=== PATIENT | female | born 1965 | race African-American/Black ===

== ENCOUNTER 2016-11-16 18:40 | Emergency (ER) | payer MEDICAID ==
[~2016-11-16] VITALS: Ht 152.4 cm; Wt 91.0 kg
[~2016-11-16 18:40] MED LIST: ENAL20TA PO; IRON PO; NORVASC PO
[2016-11-16 20:17] LABS: BASOPHILS % 0.6 % (0.0-2.0); EOSINOPHILS % 2.5 % (0.0-5.0); HEMATOCRIT. 33.3 % (36.0-48.0); HEMOGLOBIN. 10.9 g/dL (12.0-16.0); LYMPHOCYTES % 18.1 % (20.0-50.0); MEAN CORPUSCULAR HEMOGLOBIN 23.8 pg (28.0-32.0); MEAN CORPUSCULAR VOLUME 72.6 fL (81.0-99.0); MONOCYTES % 7.7 % (2.0-8.0); NEUTROPHILS % 71.1 % (40.0-76.0); PLATELET 215 x1000/uL (130-400); RED BLOOD CELL COUNT 4.59 mill/uL (4.2-5.4); RED CELL DISTRIBUTION WIDTH 16.7 % (11.6-14.6)
[2016-11-16 20:23] LABS: PARTIAL THROMBOPLASTIN TIME 27.3 sec (23.4-31.0)
[2016-11-16 20:32] LABS: CHLORIDE 104 mEq/L (98-107)
[2016-11-16 21:00] LABS: CARBON DIOXIDE 25 mEq/L (21-32); CREATINE KINASE 853 IU/L (26-192); CREATINE KINASE MB FRACTION 2.6 ng/mL (0.5-3.6)
[2016-11-16 21:02] LABS: TROPONIN I < 0.02 ng/mL (0.00-0.04)
[2016-11-16] MEDS ORDERED: POTASSIUM CHLORIDE 20MEQ TABLET SR PO ONE (21:15)
[2016-11-16 22:45] LABS: *AMPHETAMINES SCREEN URINE NEGATIVE (NEGATIVE); *BARBITURATES SCREEN URINE NEGATIVE (NEGATIVE); *BENZODIAZEPINES SCREEN URINE NEGATIVE (NEGATIVE); *COCAINE SCREEN URINE NEGATIVE (NEGATIVE); CANNABINOID URINE SCREEN NEGATIVE (NEGATIVE); METHADONE URINE SCREEN NEGATIVE (NEGATIVE); OPIATES URINE SCREEN NEGATIVE (NEGATIVE); PHENCYCLIDINE URINE SCREEN NEGATIVE (NEGATIVE)
[2016-11-16] MEDS ORDERED: ENALAPRIL 10MG TABLET PO ONE (23:30)
[2016-11-17 00:25] VITALS: BP 181/107
== END 2016-11-17 01:00 | disposition home or self-care (01) ==
LOC: ER 22:15
DX: I10 Essential (primary) hypertension (principal); D64.9 Anemia, unspecified; E87.8 Other disorders of electrolyte and fluid balance, not elsewhere classified; Z88.3 Allergy status to other anti-infective agents
CPT/HCPCS: 36415; 71010; 80053; 80305; 82550; 82553; 83690; 83880; 84484; 85025; 85610; 85730; 93005; 99285; Z7610

== ENCOUNTER 2017-11-16 15:50 | Emergency (ER) | payer MEDICAID ==
[~2017-11-16] VITALS: Ht 157.5 cm; Wt 89.0 kg
[2017-11-16 15:58] VITALS: BP 144/84
== END 2017-11-16 19:51 | disposition left against medical advice (07) ==
LOC: ER 15:50
DX: R00.2 Palpitations (principal); Z53.21 Procedure and treatment not carried out due to patient leaving prior to being seen by health care provider
CPT/HCPCS: 99281

== ENCOUNTER 2017-11-25 16:15 | Emergency (ER) | payer MEDICAID ==
[~2017-11-25] VITALS: Ht 152.4 cm; Wt 88.0 kg
[2017-11-25 20:40] VITALS: BP 147/90
[2017-11-25 20:43] LABS: BASOPHILS % 0.8 % (0.0-2.0); EOSINOPHILS % 3.6 % (0.0-5.0); HEMATOCRIT. 28.3 % (36.0-48.0); LYMPHOCYTES % 20.8 % (20.0-50.0); MEAN CORPUSCULAR HEMOGLOBIN 23.7 pg (28.0-32.0); MEAN CORPUSCULAR VOLUME 74.3 fL (81.0-99.0); MEAN PLATELET VOLUME 7.9 fl (7.4-10.4); MONOCYTES % 7.6 % (2.0-8.0); NEUTROPHILS % 67.2 % (40.0-76.0); PLATELET 183 x1000/uL (130-400); RED CELL DISTRIBUTION WIDTH 18.5 % (11.6-14.6)
[2017-11-25 20:47] LABS: CHLORIDE 108 mEq/L (98-107)
== END 2017-11-25 23:12 | disposition left against medical advice (07) ==
LOC: ER 17:24
DX: D25.9 Leiomyoma of uterus, unspecified (principal); D50.9 Iron deficiency anemia, unspecified; I10 Essential (primary) hypertension; Z88.3 Allergy status to other anti-infective agents; Z88.0 Allergy status to penicillin
CPT/HCPCS: 36415; 76830; 76856; 80053; 81025; 85025; 86850; 86900; 99285

== ENCOUNTER 2017-12-09 15:08 | Emergency (ER) | payer MEDICAID ==
[~2017-12-09] VITALS: Ht 152.4 cm; Wt 87.0 kg
[2017-12-09] MEDS ORDERED: LORAZEPAM 2MG/ML CPJ IV ONE (18:30)
[2017-12-09 20:33] LABS: BASOPHILS % 0.7 % (0.0-2.0); HEMATOCRIT. 32.9 % (36.0-48.0); HEMOGLOBIN. 10.3 g/dL (12.0-16.0); LYMPHOCYTES % 23.9 % (20.0-50.0); MEAN CORPUSCULAR HEMOGLOBIN 23.6 pg (28.0-32.0); MEAN CORPUSCULAR VOLUME 75.6 fL (81.0-99.0); MEAN PLATELET VOLUME 8.2 fl (7.4-10.4); MONOCYTES % 6.4 % (2.0-8.0); PLATELET 241 x1000/uL (130-400); RED BLOOD CELL COUNT 4.35 mill/uL (4.2-5.4); RED CELL DISTRIBUTION WIDTH 18.9 % (11.6-14.6)
[2017-12-09 20:42] LABS: PARTIAL THROMBOPLASTIN TIME 27.1 sec (23.4-31.0); PROTHROMBIN TIME 9.9 sec (9.1-11.1)
[2017-12-09 20:50] LABS: CHLORIDE 107 mEq/L (98-107)
[2017-12-09 20:57] LABS: ETHANOL BLOOD < 10 mg/dL
[2017-12-09] MEDS ORDERED: CLONIDINE 0.2MG TABLET PO ONE (21:15)
[2017-12-09 21:30] VITALS: BP 154/94
== END 2017-12-09 22:06 | disposition home or self-care (01) ==
LOC: ER 15:08
DX: I10 Essential (primary) hypertension (principal); R51 Headache; Z88.3 Allergy status to other anti-infective agents
CPT/HCPCS: 36415; 70450; 71045; 80053; 83880; 84443; 84484; 85025; 85610; 85730; 93005; 99285; G0482

== ENCOUNTER 2018-07-08 11:18 | Emergency (ER) | payer MEDICAID ==
[~2018-07-08] VITALS: Ht 152.4 cm; Wt 100.0 kg
[2018-07-08] MEDS ORDERED: ONDANSETRON HCL 4MG/2ML INJ IV STA (11:33)
[2018-07-08 11:45] LABS: HEMATOCRIT. 41.6 % (36.0-48.0); HEMOGLOBIN. 13.4 g/dL (12.0-16.0); MEAN CORPUSCULAR HEMOGLOBIN 24.1 pg (28.0-32.0); MEAN PLATELET VOLUME 8.4 fl (7.4-10.4); PLATELET 167 x1000/uL (130-400); RED BLOOD CELL COUNT 5.55 mill/uL (4.2-5.4); RED CELL DISTRIBUTION WIDTH 22.2 % (11.6-14.6)
[2018-07-08 11:52] LABS: CHLORIDE 105 mEq/L (98-107)
[2018-07-08 11:53] LABS: PROTHROMBIN TIME 10.2 sec (9.6-11.0)
[2018-07-08 13:07] LABS: PLATELET ESTIMATE NORMAL
[2018-07-08 13:17] LABS: CLARITY URINE CLEAR (CLEAR); COLOR URINE YELLOW (YELLOW); KETONES URINE NEGATIVE (NEGATIVE); LEUKOCYTE ESTERASE URINE 2+ (NEGATIVE); NITRITE URINE NEGATIVE (NEGATIVE); OCCULT BLOOD URINE 1+ (NEGATIVE); PROTEIN URINE 1+ (NEGATIVE); SPECIFIC GRAVITY URINE 1.012 (1.005-1.030); UROBILINOGEN URINE 0.2 E.U./dL (0.2-1.0)
[2018-07-08 14:03] VITALS: BP 135/83
== END 2018-07-08 14:09 | disposition home or self-care (01) ==
LOC: ER 11:18
DX: N39.0 Urinary tract infection, site not specified (principal); R11.2 Nausea with vomiting, unspecified; R20.2 Paresthesia of skin; E88.09 Other disorders of plasma-protein metabolism, not elsewhere classified; I10 Essential (primary) hypertension; Z98.890 Other specified postprocedural states; Z88.1 Allergy status to other antibiotic agents
CPT/HCPCS: 36415; 80053; 81003; 81025; 83690; 85025; 85610; 87077; 87086; 93005; 99284; J2405; Z7610

== ENCOUNTER 2018-07-09 13:45 | Emergency (ER) | payer MEDICAID ==
[~2018-07-09] VITALS: Ht 165.1 cm; Wt 93.0 kg
[2018-07-09] MEDS ORDERED: ONDANSETRON HCL 4MG/2ML INJ IV STA (14:33)
[2018-07-09] MEDS ORDERED: KETOROLAC 30MG/ML VIAL IV STA (14:33)
[2018-07-09 14:59] LABS: HEMATOCRIT. 38.4 % (36.0-48.0); HEMOGLOBIN. 12.6 g/dL (12.0-16.0); MEAN CORPUSCULAR HEMOGLOBIN 24.4 pg (28.0-32.0); MEAN CORPUSCULAR VOLUME 74.1 fL (81.0-99.0); MEAN PLATELET VOLUME 8.3 fl (7.4-10.4); PLATELET 140 x1000/uL (130-400); RED BLOOD CELL COUNT 5.19 mill/uL (4.2-5.4); RED CELL DISTRIBUTION WIDTH 22.6 % (11.6-14.6)
[2018-07-09] MEDS ORDERED: ONDANSETRON HCL 4MG TABLET PO ONE (15:00)
[2018-07-09] MEDS ORDERED: OXYCODONE HCL/ACETAMINOPHEN 5/325MG TABLET PO ONE (15:00)
[2018-07-09 15:04] LABS: CHLORIDE 104 mEq/L (98-107)
[2018-07-09 15:05] LABS: PROTHROMBIN TIME 10.7 sec (9.6-11.0)
[2018-07-09 15:37] LABS: PLATELET ESTIMATE NORMAL
[2018-07-09 16:30] VITALS: BP 112/68
== END 2018-07-09 16:31 | disposition home or self-care (01) ==
LOC: ER 13:52
DX: D25.9 Leiomyoma of uterus, unspecified (principal); I10 Essential (primary) hypertension; Z88.1 Allergy status to other antibiotic agents; Z88.3 Allergy status to other anti-infective agents
CPT/HCPCS: 36415; 74176; 80053; 83690; 85025; 85610; 99284; Q0162; Z7610

== ENCOUNTER 2019-03-14 13:56 | Emergency (ER) | payer MEDICAID ==
[~2019-03-14] VITALS: Ht 152.4 cm; Wt 91.0 kg
[2019-03-14 17:14] LABS: BASOPHILS % 0.5 % (0.0-2.0); EOSINOPHILS % 1.5 % (0.0-5.0); HEMATOCRIT. 43.3 % (36.0-48.0); HEMOGLOBIN. 14.6 g/dL (12.0-16.0); LYMPHOCYTES % 17.7 % (20.0-50.0); MEAN CORPUSCULAR HEMOGLOBIN 25.3 pg (28.0-32.0); MEAN CORPUSCULAR VOLUME 74.8 fL (81.0-99.0); MEAN PLATELET VOLUME 8.2 fl (7.4-10.4); MONOCYTES % 6.8 % (2.0-8.0); NEUTROPHILS % 73.5 % (40.0-76.0); PLATELET 227 x1000/uL (130-400); RED BLOOD CELL COUNT 5.79 mill/uL (4.2-5.4); RED CELL DISTRIBUTION WIDTH 18.2 % (11.6-14.6)
[2019-03-14 17:18] LABS: CHLORIDE 101 mEq/L (98-107)
[2019-03-14 18:49] VITALS: BP 152/93
== END 2019-03-14 18:53 | disposition home or self-care (01) ==
LOC: ER 13:56
DX: I10 Essential (primary) hypertension (principal); R07.89 Other chest pain; R20.2 Paresthesia of skin; Z88.1 Allergy status to other antibiotic agents; Z88.2 Allergy status to sulfonamides
CPT/HCPCS: 36415; 71045; 80053; 83880; 84484; 85025; 93005; 99284

== ENCOUNTER 2019-03-25 16:09 | Emergency (ER) | payer MEDICAID ==
[~2019-03-25] VITALS: Ht 160 cm; Wt 90.0 kg
[2019-03-25] MEDS ORDERED: ONDANSETRON HCL 4MG/2ML INJ IV STA (23:44)
[2019-03-26 00:06] LABS: CLARITY URINE CLEAR (CLEAR); COLOR URINE DARK YELLOW (YELLOW); KETONES URINE 2+ (NEGATIVE); LEUKOCYTE ESTERASE URINE 2+ (NEGATIVE); NITRITE URINE NEGATIVE (NEGATIVE); OCCULT BLOOD URINE 3+ (NEGATIVE); PH URINE 5.5 (4.5-8.0); PROTEIN URINE 2+ (NEGATIVE); SPECIFIC GRAVITY URINE 1.027 (1.005-1.030); UROBILINOGEN URINE 0.2 E.U./dL (0.2-1.0)
[2019-03-26 00:19] LABS: *BARBITURATES SCREEN URINE NEGATIVE (NEGATIVE); *BENZODIAZEPINES SCREEN URINE NEGATIVE (NEGATIVE)
[2019-03-26 00:21] LABS: *AMPHETAMINES SCREEN URINE NEGATIVE (NEGATIVE); *COCAINE SCREEN URINE NEGATIVE (NEGATIVE); METHADONE URINE SCREEN NEGATIVE (NEGATIVE); OPIATES URINE SCREEN NEGATIVE (NEGATIVE); PHENCYCLIDINE URINE SCREEN NEGATIVE (NEGATIVE)
[2019-03-26 00:22] LABS: CANNABINOID URINE SCREEN NEGATIVE (NEGATIVE)
[2019-03-26 00:36] LABS: BASOPHILS % 0.3 % (0.0-2.0); EOSINOPHILS % 3.8 % (0.0-5.0); HEMATOCRIT. 42.9 % (36.0-48.0); HEMOGLOBIN. 13.7 g/dL (12.0-16.0); LYMPHOCYTES % 24.2 % (20.0-50.0); MEAN PLATELET VOLUME 8.4 fl (7.4-10.4); MONOCYTES % 8.4 % (2.0-8.0); NEUTROPHILS % 63.3 % (40.0-76.0); PLATELET 228 x1000/uL (130-400); RED BLOOD CELL COUNT 5.72 mill/uL (4.2-5.4)
[2019-03-26 00:38] LABS: CHLORIDE 107 mEq/L (98-107)
[2019-03-26 00:43] LABS: ETHANOL BLOOD < 10 mg/dL
[2019-03-26] MEDS ORDERED: ONDANSETRON 4MG ODT PO ONE (00:45)
[2019-03-26] MEDS ORDERED: CEPHALEXIN 250MG CAPSULE PO NR (01:00)
[2019-03-26 01:48] VITALS: BP 162/101
== END 2019-03-26 01:50 | disposition home or self-care (01) ==
LOC: ER 16:09
DX: N39.0 Urinary tract infection, site not specified (principal); R11.2 Nausea with vomiting, unspecified; I10 Essential (primary) hypertension; Z88.1 Allergy status to other antibiotic agents; Z88.2 Allergy status to sulfonamides
CPT/HCPCS: 36415; 71045; 80053; 80305; 80320; 81003; 83690; 85025; 99284; Q0162; Z7610; G0480

== ENCOUNTER 2020-06-04 06:41 | Inpatient (IN) | payer MEDICAID ==
[~2020-06-04] VITALS: Ht 152.4 cm; Wt 94.8 kg
[~2020-06-04 06:41] MED LIST changes: -ENAL20TA PO; +ENAL20TA18 PO
[2020-06-04] MEDS ORDERED: DILTIAZEM HCL 5MG/ML 5ML VIAL IV ONE ×2 (07:15→09:45)
[2020-06-04 07:30] LABS: EOSINOPHILS % 3.6 % (0.0-5.0); HEMATOCRIT. 42.1 % (36.0-48.0); HEMOGLOBIN. 14.2 g/dL (12.0-16.0); LYMPHOCYTES % 33.3 % (20.0-50.0); MEAN CORPUSCULAR HEMOGLOBIN 26.7 pg (28.0-32.0); MEAN CORPUSCULAR VOLUME 79.1 fL (81.0-99.0); MEAN PLATELET VOLUME 8.4 fl (7.4-10.4); MONOCYTES % 9.4 % (2.0-8.0); NEUTROPHILS % 52.7 % (40.0-76.0); PLATELET 181 x1000/uL (130-400); RED BLOOD CELL COUNT 5.33 mill/uL (4.2-5.4); RED CELL DISTRIBUTION WIDTH 14.6 % (11.6-14.6)
[2020-06-04 07:34] LABS: CHLORIDE 105 mEq/L (98-107)
[2020-06-04 08:09] LABS: INR 0.9; PROTHROMBIN TIME 10.2 sec (9.6-11.0)
[2020-06-04] MEDS ORDERED: DILTIAZEM HCL 125 MG in DEXT 5% WATER 100 ML IV ONE (09:45)
[2020-06-04] MEDS ORDERED: DILTIAZEM HCL 125MG in DEXTROSE 5% WATER 125ML IV NR (10:15)
[2020-06-04] MEDS ORDERED: DIGOXIN 500MCG/2ML AMP IV NR (12:00)
[2020-06-04] MEDS ORDERED: ONDANSETRON HCL 4MG/2ML INJ IV PRN (12:00)
[2020-06-04] MEDS ORDERED: ACETAMINOPHEN 325MG TABLET PO PRN (12:00)
[2020-06-04 12:03] LABS: CLARITY URINE CLOUDY (CLEAR); COLOR URINE YELLOW (YELLOW); KETONES URINE NEGATIVE (NEGATIVE); LEUKOCYTE ESTERASE URINE 3+ (NEGATIVE); NITRITE URINE NEGATIVE (NEGATIVE); OCCULT BLOOD URINE NEGATIVE (NEGATIVE); PH URINE 5.5 (4.5-8.0); PROTEIN URINE NEGATIVE (NEGATIVE); SPECIFIC GRAVITY URINE 1.016 (1.005-1.030); UROBILINOGEN URINE 0.2 E.U./dL (0.2-1.0)
[2020-06-04] MEDS: ENOXAPARIN 100MG/ML SYR SUBCUT SCH (13:00)
[2020-06-04] MEDS ORDERED: DILTIAZEM HCL 5MG/ML 5ML VIAL IV PRN (13:30)
[2020-06-04 16:00] VITALS: BP_SYST 123; BP_SYST 133; BP_DIAS 68; BP_DIAS 84
[2020-06-04] MEDS: AMIODARONE HCL 200 MG TABLET PO SCH (17:20)
[2020-06-04 18:00] VITALS: BP 131/76
[2020-06-04] MEDS: DILTIAZEM HCL 30MG TABLET PO SCH ×2 (18:49→23:42)
[2020-06-04 20:01] VITALS: BP 117/66
[2020-06-04 22:00] VITALS: BP 127/77
[2020-06-05] VITALS (10 sets, daily range): BP systolic 116–140; BP diastolic 59–97
[2020-06-05] MEDS: ENOXAPARIN 100MG/ML SYR SUBCUT SCH ×2 (00:03→12:03)
[2020-06-05] MEDS: DILTIAZEM HCL 30MG TABLET PO SCH (05:42)
[2020-06-05] MEDS: AMIODARONE HCL 200 MG TABLET PO SCH ×3 (07:20→17:13)
[2020-06-05 07:44] LABS: BASOPHILS % 0.6 % (0.0-2.0); EOSINOPHILS % 3.9 % (0.0-5.0); HEMATOCRIT. 42.3 % (36.0-48.0); HEMOGLOBIN. 14.2 g/dL (12.0-16.0); LYMPHOCYTES % 31.5 % (20.0-50.0); MEAN CORPUSCULAR HEMOGLOBIN 26.5 pg (28.0-32.0); MEAN CORPUSCULAR VOLUME 79.1 fL (81.0-99.0); MEAN PLATELET VOLUME 8.5 fl (7.4-10.4); MONOCYTES % 8.1 % (2.0-8.0); NEUTROPHILS % 55.9 % (40.0-76.0); PLATELET 196 x1000/uL (130-400); RED BLOOD CELL COUNT 5.35 mill/uL (4.2-5.4); RED CELL DISTRIBUTION WIDTH 14.6 % (11.6-14.6)
[2020-06-05 07:52] LABS: CHLORIDE 108 mEq/L (98-107)
[2020-06-05] MEDS: THIAMINE HCL 100MG TABLET PO SCH (08:10)
[2020-06-05] MEDS: DILTIAZEM HCL 60MG TABLET PO SCH ×2 (12:03→18:14)
[2020-06-06] VITALS: BP 139/89
[2020-06-06] MEDS: ENOXAPARIN 100MG/ML SYR SUBCUT SCH (00:24)
[2020-06-06 04:04] VITALS: BP 146/84
[2020-06-06 06:00] VITALS: BP 157/92
[2020-06-06] MEDS: DILTIAZEM HCL 60MG TABLET PO SCH ×2 (06:00)
[2020-06-06] MEDS: AMIODARONE HCL 200 MG TABLET PO SCH (06:41)
[2020-06-06 07:48] VITALS: BP 136/84
[2020-06-06] MEDS: THIAMINE HCL 100MG TABLET PO SCH (08:37)
[2020-06-06] MEDS ORDERED: AMIO100T4 MT (09:03)
[2020-06-06] MEDS ORDERED: APIX5TAB MT (09:03)
[2020-06-06] MEDS ORDERED: DILT240C91 MT (09:03)
[2020-06-06 09:10] VITALS: BP 136/84
== END 2020-06-06 10:15 | disposition home or self-care (01) | DRG 201 ==
LOC: ER 06:41 → 3WST 12:11 → EDBEDREQTM 12:14 → EDBEDREQ 12:14 → ENRESERV 12:57 → EDBEDREQSVC 14:03 → ENRESERV 14:31
PROVIDERS: ADMIT Internal Medicine; ATTEND Internal Medicine
DX: I48.91 Unspecified atrial fibrillation (principal); E44.1 Mild protein-calorie malnutrition; F10.10 Alcohol abuse, uncomplicated; Z68.41 Body mass index [BMI] 40.0-44.9, adult; F41.9 Anxiety disorder, unspecified; I10 Essential (primary) hypertension; E66.01 Morbid (severe) obesity due to excess calories; Z91.19 Patient's noncompliance with other medical treatment and regimen; Z88.1 Allergy status to other antibiotic agents; Z88.8 Allergy status to other drugs, medicaments and biological substances; Z79.899 Other long term (current) drug therapy; Z80.9 Family history of malignant neoplasm, unspecified; Z71.41 Alcohol abuse counseling and surveillance of alcoholic; Z71.3 Dietary counseling and surveillance
CPT/HCPCS: 36415; 71045; 80048; 80053; 81003; 83735; 83880; 84443; 84484; 85025; 93005; 93306; 99291; J1160; J1650; J3490; J7060

== ENCOUNTER 2021-02-19 17:07 | Emergency (ER) | payer MEDICAID ==
[~2021-02-19] VITALS: Ht 152.4 cm; Wt 100.0 kg
[~2021-02-19 17:07] MED LIST changes: +AMIO100T4 MT; +APIX5TAB MT; +DILT240C91 MT; -ENAL20TA18 PO; -NORVASC PO
[2021-02-19] MEDS ORDERED: RIVA10TA MT (22:20)
[2021-02-19 22:30] VITALS: BP 165/80
== END 2021-02-19 22:30 | disposition home or self-care (01) ==
LOC: ER 17:07
DX: I82.401 Acute embolism and thrombosis of unspecified deep veins of right lower extremity (principal); I86.8 Varicose veins of other specified sites; I10 Essential (primary) hypertension
CPT/HCPCS: 93970; 99284

== ENCOUNTER 2021-10-03 21:25 | Emergency (ER) | payer MEDICAID ==
[~2021-10-03] VITALS: Ht 152.4 cm; Wt 98.0 kg
[~2021-10-03 21:25] MED LIST changes: +RIVA10TA MT
[2021-10-03 21:31] VITALS: BP 149/98
[2021-10-04] MEDS ORDERED: NITR100C PO ×2 (07:11)
[2021-10-04] MEDS ORDERED: LEVO250T43 PO (07:17)
== END 2021-10-03 21:31 | disposition left against medical advice (07) ==
LOC: ER 21:25
DX: Z53.21 Procedure and treatment not carried out due to patient leaving prior to being seen by health care provider (principal)

== ENCOUNTER 2021-10-04 04:53 | Emergency (ER) | payer MEDICAID ==
[~2021-10-04] VITALS: Ht 152.4 cm; Wt 98.0 kg
[2021-10-04] MEDS ORDERED: LORAZEPAM 0.5MG TABLET PO ONE (06:00)
[2021-10-04 06:32] LABS: CLARITY URINE CLOUDY (CLEAR); COLOR URINE YELLOW (YELLOW); KETONES URINE TRACE (NEGATIVE); LEUKOCYTE ESTERASE URINE 2+ (NEGATIVE); NITRITE URINE NEGATIVE (NEGATIVE); OCCULT BLOOD URINE 2+ (NEGATIVE); PH URINE 5.5 (4.5-8.0); PROTEIN URINE 2+ (NEGATIVE); SPECIFIC GRAVITY URINE 1.024 (1.005-1.030)
[2021-10-04 06:38] VITALS: BP 154/99
[2021-10-04 06:47] LABS: CHLORIDE 104 mEq/L (98-107)
[2021-10-04 06:52] LABS: BASOPHILS % 0.5 % (0.0-2.0); EOSINOPHILS % 2.4 % (0.0-5.0); HEMATOCRIT. 45.2 % (36.0-48.0); HEMOGLOBIN. 14.9 g/dL (12.0-16.0); LYMPHOCYTES % 28.7 % (20.0-50.0); MEAN CORPUSCULAR HEMOGLOBIN 26.7 pg (28.0-32.0); MEAN CORPUSCULAR VOLUME 81.1 fL (81.0-99.0); MEAN PLATELET VOLUME 8.4 fl (7.4-10.4); MONOCYTES % 7.2 % (2.0-8.0); NEUTROPHILS % 61.2 % (40.0-76.0); PLATELET 192 x1000/uL (130-400); RED BLOOD CELL COUNT 5.57 mill/uL (4.2-5.4); RED CELL DISTRIBUTION WIDTH 16.1 % (11.6-14.6)
[2021-10-04] MEDS ORDERED: NITR100C PO ×2 (07:11)
[2021-10-04] MEDS ORDERED: POTASSIUM CHLORIDE 20MEQ TABLET SR PO ONE (07:15)
[2021-10-04] MEDS ORDERED: LEVO250T43 PO (07:17)
== END 2021-10-04 07:33 | disposition home or self-care (01) ==
LOC: ER 04:53
DX: R00.2 Palpitations (principal); N39.0 Urinary tract infection, site not specified; E87.6 Hypokalemia; I10 Essential (primary) hypertension; D25.9 Leiomyoma of uterus, unspecified; Z88.1 Allergy status to other antibiotic agents; Z88.3 Allergy status to other anti-infective agents
CPT/HCPCS: 36415; 71045; 80053; 81003; 83880; 84484; 85025; 93005; 99285

== ENCOUNTER 2021-12-06 19:16 | Emergency (ER) | payer MEDICAID, OTHER ==
[~2021-12-06] VITALS: Ht 152.4 cm; Wt 99.9 kg
[~2021-12-06 19:16] MED LIST changes: +LEVO250T43 PO
[2021-12-07 01:51] VITALS: BP 124/78
== END 2021-12-07 01:53 | disposition home or self-care (01) ==
LOC: ER 19:16
DX: R25.2 Cramp and spasm (principal); I10 Essential (primary) hypertension; Z88.1 Allergy status to other antibiotic agents; Z98.890 Other specified postprocedural states
CPT/HCPCS: 93970; 99284

== ENCOUNTER 2022-01-29 21:27 | Emergency (ER) | payer OTHER ==
[~2022-01-29] VITALS: Ht 152.4 cm; Wt 99.2 kg
[~2022-01-29 21:27] MED LIST changes: -LEVO250T43 PO; +LEVO250T74 PO
[2022-01-30 03:43] LABS: BASOPHILS % 0.5 % (0.0-2.0); EOSINOPHILS % 0.3 % (0.0-5.0); HEMATOCRIT. 37.6 % (36.0-48.0); HEMOGLOBIN. 12.3 g/dL (12.0-16.0); LYMPHOCYTES % 16.5 % (20.0-50.0); MEAN CORPUSCULAR HEMOGLOBIN 27.4 pg (28.0-32.0); MEAN PLATELET VOLUME 8.4 fl (7.4-10.4); MONOCYTES % 5.3 % (2.0-8.0); NEUTROPHILS % 77.4 % (40.0-76.0); PLATELET 182 x1000/uL (130-400); RED BLOOD CELL COUNT 4.48 mill/uL (4.2-5.4); RED CELL DISTRIBUTION WIDTH 15.3 % (11.6-14.6)
[2022-01-30 03:51] LABS: PROTHROMBIN TIME 10.6 sec (9.6-11.0)
[2022-01-30 04:17] LABS: CHLORIDE 107 mEq/L (98-107)
[2022-01-30 05:59] VITALS: BP 112/78
[2022-01-30 06:04] LABS: CLARITY URINE TURBID (CLEAR); COLOR URINE DARK YELLOW (YELLOW); KETONES URINE 1+ (NEGATIVE); LEUKOCYTE ESTERASE URINE 1+ (NEGATIVE); NITRITE URINE NEGATIVE (NEGATIVE); OCCULT BLOOD URINE NEGATIVE (NEGATIVE); PROTEIN URINE 1+ (NEGATIVE); SPECIFIC GRAVITY URINE 1.024 (1.005-1.030)
== END 2022-01-30 05:45 | disposition home or self-care (01) ==
LOC: ER 21:27
DX: K62.5 Hemorrhage of anus and rectum (principal); I10 Essential (primary) hypertension; Z79.899 Other long term (current) drug therapy
CPT/HCPCS: 36415; 80053; 81003; 85025; 93005; 99284

== ENCOUNTER 2022-01-30 14:43 | Emergency (ER) | payer OTHER ==
[~2022-01-30] VITALS: Ht 160 cm; Wt 79.0 kg
[2022-01-30 18:25] LABS: BASOPHILS % 0.3 % (0.0-2.0); EOSINOPHILS % 0.2 % (0.0-5.0); HEMOGLOBIN. 9.3 g/dL (12.0-16.0); LYMPHOCYTES % 14.4 % (20.0-50.0); MEAN CORPUSCULAR HEMOGLOBIN 27.6 pg (28.0-32.0); MEAN CORPUSCULAR VOLUME 83.3 fL (81.0-99.0); MEAN PLATELET VOLUME 8.6 fl (7.4-10.4); NEUTROPHILS % 80.1 % (40.0-76.0); PLATELET 182 x1000/uL (130-400); RED BLOOD CELL COUNT 3.36 mill/uL (4.2-5.4); RED CELL DISTRIBUTION WIDTH 15.2 % (11.6-14.6)
[2022-01-30 18:38] LABS: PROTHROMBIN TIME 10.7 sec (9.6-11.0)
[2022-01-30 18:51] LABS: CHLORIDE 103 mEq/L (98-107)
[2022-01-31 01:05] VITALS: BP 121/69
== END 2022-01-31 01:45 | disposition short-term general hospital (02) ==
LOC: ER 14:43 → CANBEDREQ 02-01 08:44
DX: K92.2 Gastrointestinal hemorrhage, unspecified (principal); I10 Essential (primary) hypertension; Z88.1 Allergy status to other antibiotic agents; Z88.3 Allergy status to other anti-infective agents
CPT/HCPCS: 36415; 74176; 80053; 84484; 85025; 86850; 86900; 99291

== ENCOUNTER 2022-04-03 17:12 | Emergency (ER) | payer MEDICAID, OTHER ==
[~2022-04-03] VITALS: Ht 152.4 cm; Wt 105.0 kg
[2022-04-03] MEDS ORDERED: DILTIAZEM HCL 90MG TABLET PO ONE (20:15)
[2022-04-03] MEDS ORDERED: DILTIAZEM HCL 5MG/ML 5ML VIAL IV ONE (20:15)
[2022-04-03] MEDS ORDERED: ASPIRIN 81MG TABLET PO ONE (20:15)
[2022-04-03 20:32] LABS: BASOPHILS % 0.8 % (0.0-2.0); EOSINOPHILS % 2.9 % (0.0-5.0); HEMATOCRIT. 42.6 % (36.0-48.0); HEMOGLOBIN. 13.7 g/dL (12.0-16.0); LYMPHOCYTES % 34.9 % (20.0-50.0); MEAN CORPUSCULAR HEMOGLOBIN 24.9 pg (28.0-32.0); MEAN CORPUSCULAR VOLUME 77.6 fL (81.0-99.0); MEAN PLATELET VOLUME 8.5 fl (7.4-10.4); MONOCYTES % 8.4 % (2.0-8.0); PLATELET 191 x1000/uL (130-400); RED BLOOD CELL COUNT 5.48 mill/uL (4.2-5.4); RED CELL DISTRIBUTION WIDTH 16.9 % (11.6-14.6)
[2022-04-03 20:38] LABS: CHLORIDE 106 mEq/L (98-107)
[2022-04-03 20:43] LABS: *AMPHETAMINES SCREEN URINE NEGATIVE (NEGATIVE); *BARBITURATES SCREEN URINE NEGATIVE (NEGATIVE); *BENZODIAZEPINES SCREEN URINE NEGATIVE (NEGATIVE); *COCAINE SCREEN URINE NEGATIVE (NEGATIVE); CANNABINOID URINE SCREEN NEGATIVE (NEGATIVE); METHADONE URINE SCREEN NEGATIVE (NEGATIVE); OPIATES URINE SCREEN NEGATIVE (NEGATIVE); PHENCYCLIDINE URINE SCREEN NEGATIVE (NEGATIVE)
[2022-04-03 20:49] LABS: ETHANOL BLOOD < 10 mg/dL
[2022-04-04] MEDS ORDERED: DILT60TA41 MT (00:02)
[2022-04-04 00:10] VITALS: BP 139/87
== END 2022-04-04 00:15 | disposition left against medical advice (07) ==
LOC: ER 17:12 → CANBEDREQ 04-04 17:56
DX: I48.91 Unspecified atrial fibrillation (principal); I10 Essential (primary) hypertension; E78.00 Pure hypercholesterolemia, unspecified; Z88.6 Allergy status to analgesic agent; Z88.1 Allergy status to other antibiotic agents
CPT/HCPCS: 36415; 71045; 80053; 80305; 80320; 83880; 84484; 85025; 93005; 96374; 99291; J3490; G0480

== ENCOUNTER 2022-06-04 19:05 | Emergency (ER) | payer OTHER ==
[~2022-06-04] VITALS: Ht 152.4 cm; Wt 94.5 kg
[~2022-06-04 19:05] MED LIST changes: +DILT60TA41 MT
[2022-06-04 19:11] VITALS: BP 151/97
[2022-06-04 22:59] LABS: BASOPHILS % 0.7 % (0.0-2.0); HEMATOCRIT. 43.2 % (36.0-48.0); HEMOGLOBIN. 14.4 g/dL (12.0-16.0); LYMPHOCYTES % 31.4 % (20.0-50.0); MEAN CORPUSCULAR HEMOGLOBIN 25.3 pg (28.0-32.0); MEAN CORPUSCULAR VOLUME 75.8 fL (81.0-99.0); MEAN PLATELET VOLUME 7.9 fl (7.4-10.4); MONOCYTES % 7.9 % (2.0-8.0); PLATELET 178 x1000/uL (130-400); RED CELL DISTRIBUTION WIDTH 19.7 % (11.6-14.6)
[2022-06-04 23:07] LABS: CHLORIDE 107 mEq/L (98-107)
[2022-06-04 23:10] LABS: INR 0.9; PARTIAL THROMBOPLASTIN TIME 36.7 sec (23.4-31.0)
[2022-06-04] MEDS ORDERED: APIX5TAB PO (23:31)
== END 2022-06-04 23:43 | disposition home or self-care (01) ==
LOC: ER 19:05
DX: I82.402 Acute embolism and thrombosis of unspecified deep veins of left lower extremity (principal); D64.9 Anemia, unspecified; E78.00 Pure hypercholesterolemia, unspecified; I10 Essential (primary) hypertension
CPT/HCPCS: 36415; 80048; 85025; 93970; 99284

== ENCOUNTER 2022-06-17 15:53 | Emergency (ER) | payer OTHER ==
[~2022-06-17] VITALS: Ht 152.4 cm; Wt 97.0 kg
[~2022-06-17 15:53] MED LIST changes: +APIX5TAB PO
[2022-06-17 16:37] LABS: BASOPHILS % 0.5 % (0.0-2.0); CHLORIDE 105 mEq/L (98-107); EOSINOPHILS % 3.7 % (0.0-5.0); HEMATOCRIT. 41.3 % (36.0-48.0); HEMOGLOBIN. 13.7 g/dL (12.0-16.0); LYMPHOCYTES % 33.5 % (20.0-50.0); MEAN CORPUSCULAR HEMOGLOBIN 25.2 pg (28.0-32.0); MEAN CORPUSCULAR VOLUME 75.7 fL (81.0-99.0); MEAN PLATELET VOLUME 8.4 fl (7.4-10.4); MONOCYTES % 6.3 % (2.0-8.0); PLATELET 193 x1000/uL (130-400); RED BLOOD CELL COUNT 5.46 mill/uL (4.2-5.4); RED CELL DISTRIBUTION WIDTH 18.3 % (11.6-14.6)
[2022-06-17 17:09] LABS: INR 0.9; PARTIAL THROMBOPLASTIN TIME 35.6 sec (23.4-31.0); PROTHROMBIN TIME 9.7 sec (9.6-11.0)
[2022-06-17 20:01] VITALS: BP 157/101
[2022-06-17] MEDS ORDERED: IOHEXOL-350 100 ML BOTTLE ONE (23:18)
== END 2022-06-17 21:08 | disposition home or self-care (01) ==
LOC: ER 15:53
DX: I49.1 Atrial premature depolarization (principal); I82.409 Acute embolism and thrombosis of unspecified deep veins of unspecified lower extremity; I10 Essential (primary) hypertension; E78.00 Pure hypercholesterolemia, unspecified; Z88.1 Allergy status to other antibiotic agents; Z98.890 Other specified postprocedural states
CPT/HCPCS: 36415; 71275; 80053; 84443; 84484; 85025; 85379; 85610; 85730; 93005; 99291; Q9967; Z7610

== ENCOUNTER 2023-11-01 15:44 | Emergency (ER) | payer OTHER ==
[~2023-11-01] VITALS: Ht 165.1 cm; Wt 116.0 kg
[2023-11-01 15:51] VITALS: TEMP 97.9; O2SAT 96
[2023-11-01 16:52] LABS: CHLORIDE 107 mEq/L (98-107); POTASSIUM 3.7 mEq/L (3.5-5.1); SODIUM 139 mEq/L (136-145)
[2023-11-01 16:53] LABS: CALCIUM 9.1 mg/dL (8.7-10.4); CARBON DIOXIDE 26 mEq/L (21-32)
[2023-11-01 16:58] LABS: CREATININE 0.7 mg/dL (0.6-1.0); GLUCOSE 126 mg/dL (70-105); UREA NITROGEN BLOOD 7 mg/dL (9-23)
[2023-11-01 17:06] LABS: BASOPHILS % 0.6 % (0.0-2.0); EOSINOPHILS % 3.3 % (0.0-5.0); HEMATOCRIT. 43.1 % (36.0-48.0); LYMPHOCYTES % 29.9 % (20.0-50.0); MEAN CORPUSCULAR HEMOGLOBIN 26.3 pg (28.0-32.0); MEAN CORPUSCULAR HGB CONC 32.4 g/dL (31.0-37.0); MEAN CORPUSCULAR VOLUME 81.3 fL (81.0-99.0); MEAN PLATELET VOLUME 8.8 fl (7.4-10.4); NEUTROPHILS % 59.2 % (40.0-76.0); PLATELET 190 x1000/uL (130-400); RED BLOOD CELL COUNT 5.31 mill/uL (4.2-5.4); RED CELL DISTRIBUTION WIDTH 14.5 % (11.6-14.6); WHITE BLOOD COUNT 6.4 x1000/uL (4.5-11.0)
[2023-11-01 17:13] LABS: INR 0.9; PARTIAL THROMBOPLASTIN TIME 32.2 sec (23.4-31.0); PROTHROMBIN TIME 9.8 sec (9.6-11.0)
[2023-11-01 18:45] VITALS: BP 162/96; PULSE 92; RESP 18; O2SAT 96
[2023-11-08] MEDS ORDERED: AMLO10TA80 MT (05:37)
[2023-11-08] MEDS ORDERED: ENAL-79 MT (05:37)
== END 2023-11-01 19:19 | disposition home or self-care (01) ==
LOC: ER 15:44
DX: R04.0 Epistaxis (principal); D64.9 Anemia, unspecified; E78.00 Pure hypercholesterolemia, unspecified; I10 Essential (primary) hypertension; I49.9 Cardiac arrhythmia, unspecified; Z79.899 Other long term (current) drug therapy
CPT/HCPCS: 36415; 80048; 85025; 99283

== ENCOUNTER 2023-11-02 08:41 | Emergency (ER) | payer MEDICAID, OTHER ==
[~2023-11-02] VITALS: Ht 160 cm; Wt 109.0 kg
[2023-11-02 09:02] VITALS: O2SAT 100
[2023-11-02 09:18] VITALS: BP 195/116; RESP 16; TEMP 37.05852; O2SAT 97
[2023-11-02 10:28] VITALS: PULSE 89
[2023-11-02] MEDS ORDERED: TRANEXAMIC ACID 1,000MG/10ML TP ONE (10:30)
[2023-11-02] MEDS: OXYMETAZOLINE HCL NASAL SPRAY 15ML BOTHNSTRLS SCH (11:28)
[2023-11-03] MEDS ORDERED: CEPH500C2 MT (04:33)
[2023-11-03] MEDS ORDERED: ACET-2708 MT (04:33)
[2023-11-08] MEDS ORDERED: AMLO10TA80 MT (05:37)
[2023-11-08] MEDS ORDERED: ENAL-79 MT (05:37)
== END 2023-11-02 14:02 | disposition home or self-care (01) ==
LOC: ER 08:41
DX: R04.0 Epistaxis (principal); I10 Essential (primary) hypertension; E78.00 Pure hypercholesterolemia, unspecified; Z88.1 Allergy status to other antibiotic agents; Z79.899 Other long term (current) drug therapy; Z98.890 Other specified postprocedural states
CPT/HCPCS: 99282

== ENCOUNTER 2023-11-02 23:08 | Emergency (ER) | payer MEDICAID, OTHER ==
[~2023-11-02] VITALS: Ht 154.9 cm; Wt 113.4 kg
[2023-11-02 23:21] VITALS: O2SAT 98
[2023-11-03] MEDS: THROMBIN (BOVINE) 5000 UNITS/VIAL TOP ONE (00:45)
[2023-11-03 01:03] LABS: BASOPHILS % 0.6 % (0.0-2.0); EOSINOPHILS % 2.1 % (0.0-5.0); HEMATOCRIT. 39.3 % (36.0-48.0); HEMOGLOBIN. 13.2 g/dL (12.0-16.0); LYMPHOCYTES % 28.1 % (20.0-50.0); MEAN CORPUSCULAR HEMOGLOBIN 27.2 pg (28.0-32.0); MEAN CORPUSCULAR HGB CONC 33.5 g/dL (31.0-37.0); MEAN CORPUSCULAR VOLUME 81.2 fL (81.0-99.0); MEAN PLATELET VOLUME 8.5 fl (7.4-10.4); MONOCYTES % 7.6 % (2.0-8.0); NEUTROPHILS % 61.6 % (40.0-76.0); PLATELET 191 x1000/uL (130-400); RED BLOOD CELL COUNT 4.84 mill/uL (4.2-5.4); RED CELL DISTRIBUTION WIDTH 14.4 % (11.6-14.6); WHITE BLOOD COUNT 8.7 x1000/uL (4.5-11.0)
[2023-11-03 01:54] LABS: INR 0.9; PROTHROMBIN TIME 9.9 sec (9.6-11.0)
[2023-11-03] MEDS: CLONIDINE 0.2MG TABLET PO ONE (04:33)
[2023-11-03] MEDS ORDERED: CEPH500C2 MT (04:33)
[2023-11-03] MEDS ORDERED: ACET-2708 MT (04:33)
[2023-11-03] MEDS: AMLODIPINE 5MG TABLET PO ONE (04:34)
[2023-11-03] MEDS: ACETAMINOPHEN 500MG TABLET PO ONE (04:46)
[2023-11-03 04:48] VITALS: BP 179/99; PULSE 83; RESP 17; TEMP 36.66960; O2SAT 98
[2023-11-08] MEDS ORDERED: AMLO10TA80 MT (05:37)
[2023-11-08] MEDS ORDERED: ENAL-79 MT (05:37)
== END 2023-11-03 04:49 | disposition home or self-care (01) ==
LOC: ER 23:08
DX: R04.0 Epistaxis (principal); I16.0 Hypertensive urgency; Z79.899 Other long term (current) drug therapy; Z88.6 Allergy status to analgesic agent; Z88.8 Allergy status to other drugs, medicaments and biological substances
CPT/HCPCS: 30901; 36415; 85025; 99291; J3490

== ENCOUNTER 2023-11-15 16:27 | Emergency (ER) | payer MEDICAID ==
[~2023-11-15] VITALS: Ht 170.2 cm; Wt 105.0 kg
[~2023-11-15 16:27] MED LIST changes: +ACET-2708 MT; +AMLO10TA80 MT; +CEPH500C2 MT; +ENAL-79 MT
[2023-11-15 16:42] VITALS: BP 165/88; TEMP 98.1; O2SAT 99
[2023-11-15 16:44] VITALS: PULSE 96; RESP 16; O2SAT 98
[2023-11-15] MEDS ORDERED: LIDO700A15 TP (22:37)
[2023-11-15] MEDS ORDERED: NAPR-1176 MT (22:37)
== END 2023-11-15 22:48 | disposition home or self-care (01) ==
LOC: ER 16:27
DX: R25.2 Cramp and spasm (principal); R07.81 Pleurodynia; I10 Essential (primary) hypertension; Z79.899 Other long term (current) drug therapy
CPT/HCPCS: 71045; 93970; 99284

== ENCOUNTER 2024-01-20 04:55 | Emergency (ER) | payer MEDICAID ==
[~2024-01-20] VITALS: Ht 167.6 cm; Wt 113.0 kg
[~2024-01-20 04:55] MED LIST changes: +LIDO700A15 TP; +NAPR-1176 MT
[2024-01-20 05:02] VITALS: O2SAT 97
[2024-01-20 07:01] LABS: BASOPHILS % 0.6 % (0.0-2.0); EOSINOPHILS % 4.2 % (0.0-5.0); HEMATOCRIT. 41.6 % (36.0-48.0); HEMOGLOBIN. 13.9 g/dL (12.0-16.0); LYMPHOCYTES % 24.4 % (20.0-50.0); MEAN CORPUSCULAR HEMOGLOBIN 27.3 pg (28.0-32.0); MEAN CORPUSCULAR HGB CONC 33.5 g/dL (31.0-37.0); MEAN CORPUSCULAR VOLUME 81.4 fL (81.0-99.0); MEAN PLATELET VOLUME 8.6 fl (7.4-10.4); MONOCYTES % 7.4 % (2.0-8.0); NEUTROPHILS % 63.4 % (40.0-76.0); PLATELET 183 x1000/uL (130-400); RED BLOOD CELL COUNT 5.11 mill/uL (4.2-5.4); RED CELL DISTRIBUTION WIDTH 14.9 % (11.6-14.6); WHITE BLOOD COUNT 6.7 x1000/uL (4.5-11.0)
[2024-01-20 07:18] LABS: CHLORIDE 106 mEq/L (98-107); POTASSIUM 3.6 mEq/L (3.5-5.1); SODIUM 138 mEq/L (136-145)
[2024-01-20 07:19] LABS: CARBON DIOXIDE 23 mEq/L (21-32)
[2024-01-20 07:20] LABS: CALCIUM 9.4 mg/dL (8.7-10.4)
[2024-01-20 07:24] LABS: CREATININE 0.6 mg/dL (0.6-1.0)
[2024-01-20 07:25] LABS: GLUCOSE 124 mg/dL (70-105); UREA NITROGEN BLOOD 10 mg/dL (9-23)
[2024-01-20 08:20] LABS: CLARITY URINE CLEAR (CLEAR); COLOR URINE YELLOW (YELLOW); GLUCOSE URINE NEGATIVE (NEGATIVE); KETONES URINE NEGATIVE (NEGATIVE); LEUKOCYTE ESTERASE URINE 2+ (NEGATIVE); NITRITE URINE NEGATIVE (NEGATIVE); OCCULT BLOOD URINE NEGATIVE (NEGATIVE); PROTEIN URINE 1+ (NEGATIVE); SPECIFIC GRAVITY URINE 1.009 (1.005-1.030); UROBILINOGEN URINE 0.2 E.U./dL (0.2-1.0)
[2024-01-20] MEDS ORDERED: LEVO-65 PO (08:27)
[2024-01-20] MEDS ORDERED: CEPH500C2 PO (08:38)
[2024-01-20 08:58] VITALS: BP 192/97; PULSE 81; RESP 18; TEMP 36.78072; O2SAT 98
[2024-01-20 09:20] LABS: SQUAMOUS EPITHELIAL CELL URINE 1+ /lpf (RARE/1+)
[2024-01-20 09:21] LABS: BACTERIA URINE TRACE; RBC URINE 0-2 /hpf (0-2)
[2024-01-27] MEDS ORDERED: HYDR50TA39 PO (12:13)
[2024-01-27] MEDS ORDERED: ATOR10TA PO (12:13)
[2024-01-27] MEDS ORDERED: LISI10TA26 PO (12:13)
[2024-01-27] MEDS ORDERED: AMLO5TAB88 PO (12:13)
[2024-01-27] MEDS ORDERED: LEVO-65 MT (12:14)
== END 2024-01-20 09:05 | disposition home or self-care (01) ==
LOC: ER 04:55
DX: I10 Essential (primary) hypertension (principal); N39.0 Urinary tract infection, site not specified; Z88.1 Allergy status to other antibiotic agents; Z79.899 Other long term (current) drug therapy
CPT/HCPCS: 36415; 71045; 80048; 81003; 85025; 99284

== ENCOUNTER 2024-02-03 13:47 | Inpatient (IN) | payer MEDICAID ==
[~2024-02-03] VITALS: Ht 152.4 cm; Wt 104.3 kg
[~2024-02-03 13:47] MED LIST changes: -ACET-2708 MT; -AMIO100T4 MT; -AMLO10TA80 MT; +AMLO5TAB88 PO; -APIX5TAB MT; -APIX5TAB PO; +ATOR10TA PO; -CEPH500C2 MT; -DILT240C91 MT; -DILT60TA41 MT; -ENAL-79 MT; +HYDR50TA39 PO; -IRON PO; +LEVO-65 MT; -LEVO250T74 PO; -LIDO700A15 TP; +LISI10TA26 PO; -NAPR-1176 MT; -RIVA10TA MT
[2024-02-03 16:39] LABS: BASOPHILS % 0.6 % (0.0-2.0); EOSINOPHILS % 2.3 % (0.0-5.0); HEMATOCRIT. 46.2 % (36.0-48.0); HEMOGLOBIN. 15.2 g/dL (12.0-16.0); LYMPHOCYTES % 24.3 % (20.0-50.0); MEAN CORPUSCULAR HEMOGLOBIN 26.6 pg (28.0-32.0); MEAN CORPUSCULAR HGB CONC 32.9 g/dL (31.0-37.0); MEAN CORPUSCULAR VOLUME 80.8 fL (81.0-99.0); MEAN PLATELET VOLUME 8.4 fl (7.4-10.4); MONOCYTES % 6.5 % (2.0-8.0); NEUTROPHILS % 66.3 % (40.0-76.0); PLATELET 254 x1000/uL (130-400); RED BLOOD CELL COUNT 5.72 mill/uL (4.2-5.4); RED CELL DISTRIBUTION WIDTH 15.1 % (11.6-14.6); WHITE BLOOD COUNT 6.8 x1000/uL (4.5-11.0)
[2024-02-03 16:46] LABS: CHLORIDE 102 mEq/L (98-107); POTASSIUM 3.9 mEq/L (3.5-5.1); SODIUM 139 mEq/L (136-145)
[2024-02-03 16:47] LABS: CARBON DIOXIDE 30 mEq/L (21-32)
[2024-02-03 16:48] LABS: CALCIUM 10.3 mg/dL (8.7-10.4)
[2024-02-03 16:52] LABS: CREATININE 0.8 mg/dL (0.6-1.0); GLUCOSE 101 mg/dL (70-105)
[2024-02-03 16:53] LABS: TROPONIN I HIGH SENSITIVITY 5 ng/L (3.0-34); UREA NITROGEN BLOOD 8 mg/dL (9-23)
[2024-02-03 17:01] LABS: INR 0.9; PARTIAL THROMBOPLASTIN TIME 34.4 sec (23.4-31.0); PROTHROMBIN TIME 10.3 sec (9.6-11.0)
[2024-02-03 18:04] LABS: TROPONIN I HIGH SENSITIVITY 4 ng/L (3.0-34)
[2024-02-03] MEDS ORDERED: ASPIRIN 325MG EC TABLET PO ONE (18:30)
[2024-02-03] MEDS ORDERED: PANTOPRAZOLE SODIUM 40 MG/VIAL IV ONE (18:45)
[2024-02-03] MEDS ORDERED: MAGNESIUM/ALUMINUM HYDROXIDE/SIMETHICONE 30ML UDC PO ONE (18:45)
[2024-02-03] MEDS: PANTOPRAZOLE SODIUM 40 MG/VIAL IV NR (21:47)
[2024-02-03] MEDS: ASPIRIN 325MG EC TABLET PO NR (21:47)
[2024-02-03] MEDS: MAGNESIUM/ALUMINUM HYDROXIDE/SIMETHICONE 30ML UDC PO NR (21:47)
[2024-02-04 05:49] VITALS: BP 125/75; PULSE 77; RESP 18; TEMP 36.3068
[2024-02-04] MEDS ORDERED: ENAL2.5T69 PO (06:15)
[2024-02-04] MEDS ORDERED: CLON-493 PO (06:15)
[2024-02-04] MEDS ORDERED: AMLO2.5T2 PO (06:15)
[2024-02-04 08:00] VITALS: BP 120/64; PULSE 71; RESP 20; TEMP 36.61404; O2SAT 96
[2024-02-04 12:00] VITALS: BP 141/87; PULSE 75; RESP 20; TEMP 37.05852; O2SAT 96
[2024-02-04] MEDS ORDERED: ONDANSETRON HCL 4MG/2ML INJ IV PRN (13:30)
[2024-02-04] MEDS ORDERED: MECLIZINE 12.5MG TABLET PO PRN (14:45)
[2024-02-04] MEDS: AMLODIPINE 5MG TABLET PO SCH (14:45)
[2024-02-04] MEDS: ENOXAPARIN 40MG/0.4ML SYR SUBCUT SCH (14:50)
[2024-02-04] MEDS: LISINOPRIL 10MG TABLET PO SCH (16:42)
[2024-02-04 20:00] VITALS: BP 137/67; PULSE 68; RESP 18; TEMP 35.89176; O2SAT 96
[2024-02-04] MEDS: CALCIUM CARBONATE 500MG TABLET CHEW PO NR (21:53)
[2024-02-04] MEDS: ATORVASTATIN CALCIUM 10MG TABLET PO SCH (21:54)
[2024-02-04] MEDS: HYDRALAZINE HCL 50MG TABLET PO SCH (21:54)
[2024-02-05] VITALS (8 sets, daily range): BP systolic 116–169; BP diastolic 58–97; PULSE 63–92; RESP 18–19; TEMP 35.8362–36.55848; O2SAT 97–100
[2024-02-05 09:15] LABS: BASOPHILS % 0.7 % (0.0-2.0); EOSINOPHILS % 3.7 % (0.0-5.0); HEMATOCRIT. 43.7 % (36.0-48.0); HEMOGLOBIN. 14.4 g/dL (12.0-16.0); LYMPHOCYTES % 30.5 % (20.0-50.0); MEAN CORPUSCULAR HEMOGLOBIN 26.6 pg (28.0-32.0); MEAN CORPUSCULAR VOLUME 80.8 fL (81.0-99.0); MEAN PLATELET VOLUME 8.4 fl (7.4-10.4); MONOCYTES % 8.7 % (2.0-8.0); NEUTROPHILS % 56.4 % (40.0-76.0); PLATELET 224 x1000/uL (130-400); RED BLOOD CELL COUNT 5.41 mill/uL (4.2-5.4); RED CELL DISTRIBUTION WIDTH 14.5 % (11.6-14.6); WHITE BLOOD COUNT 6.6 x1000/uL (4.5-11.0)
[2024-02-05 09:17] LABS: CARBON DIOXIDE 24 mEq/L (21-32); CHLORIDE 107 mEq/L (98-107); POTASSIUM 3.8 mEq/L (3.5-5.1); SODIUM 140 mEq/L (136-145)
[2024-02-05 09:18] LABS: CALCIUM 9.8 mg/dL (8.7-10.4)
[2024-02-05 11:17] LABS: T4 FREE 1.51 ng/dL (0.89-1.76)
[2024-02-05 11:18] LABS: CREATININE 0.7 mg/dL (0.6-1.0); GLUCOSE 88 mg/dL (70-105); THYROID STIMULATING HORMONE 1.54 uIU/mL (0.55-4.78); UREA NITROGEN BLOOD 7 mg/dL (9-23)
[2024-02-05] MEDS ORDERED: LISI10TA26 PO (12:08)
[2024-02-05] MEDS ORDERED: AMLO5TAB88 PO (12:08)
[2024-02-05] MEDS ORDERED: CLON0.1T MT (12:08)
[2024-02-05] MEDS ORDERED: HYDR50TA39 PO (12:08)
[2024-02-05] MEDS ORDERED: CLONIDINE 0.1MG TABLET PO PRN (12:15)
== END 2024-02-05 16:50 | disposition home or self-care (01) | DRG 347 ==
LOC: ER 13:47 → EDBEDREQ 15:43 → MICUSO 18:31 → EDBEDREQ 18:33 → 7EST 02-04 06:00
PROVIDERS: ADMIT Internal Medicine; ATTEND Internal Medicine
DX: M54.2 Cervicalgia (principal); E78.00 Pure hypercholesterolemia, unspecified; I10 Essential (primary) hypertension; R07.89 Other chest pain; R42 Dizziness and giddiness; Z88.1 Allergy status to other antibiotic agents; Z79.899 Other long term (current) drug therapy
CPT/HCPCS: 36415; 71045; 80048; 82962; 83880; 84439; 84443; 84484; 85025; 93005; 99291; J1650

== ENCOUNTER 2024-07-05 16:36 | Emergency (ER) | payer MEDICAID ==
[~2024-07-05] VITALS: Ht 157.5 cm; Wt 106.5 kg
[~2024-07-05 16:36] MED LIST changes: +CLON0.1T MT; -LEVO-65 MT
[2024-07-05 16:39] VITALS: O2SAT 96
[2024-07-05 17:02] LABS: BASOPHILS % 0.6 % (0.0-2.0); DIFFERENTIAL COMMENT 0; EOSINOPHILS % 2.9 % (0.0-5.0); HEMATOCRIT. 43.2 % (36.0-48.0); HEMOGLOBIN. 14.5 g/dL (12.0-16.0); LYMPHOCYTES % 26.3 % (20.0-50.0); MEAN CORPUSCULAR HEMOGLOBIN 26.5 pg (28.0-32.0); MEAN CORPUSCULAR HGB CONC 33.6 g/dL (31.0-37.0); MEAN CORPUSCULAR VOLUME 78.6 fL (81.0-99.0); MEAN PLATELET VOLUME 8.1 fl (7.4-10.4); MONOCYTES % 6.8 % (2.0-8.0); NEUTROPHILS % 63.4 % (40.0-76.0); PLATELET 196 x1000/uL (130-400); RED BLOOD CELL COUNT 5.49 mill/uL (4.2-5.4); RED CELL DISTRIBUTION WIDTH 14.2 % (11.6-14.6); WHITE BLOOD COUNT 6.8 x1000/uL (4.5-11.0)
[2024-07-05 17:09] LABS: CHLORIDE 103 mEq/L (98-107); POTASSIUM 3.4 mEq/L (3.5-5.1); SODIUM 139 mEq/L (136-145)
[2024-07-05 17:10] LABS: CALCIUM 9.2 mg/dL (8.7-10.4); CARBON DIOXIDE 27 mEq/L (21-32)
[2024-07-05 17:15] LABS: CREATININE 0.8 mg/dL (0.6-1.0); GLUCOSE 145 mg/dL (70-105); UREA NITROGEN BLOOD 10 mg/dL (9-23)
[2024-07-05 17:22] LABS: TROPONIN I HIGH SENSITIVITY < 4 ng/L (3.0-34)
[2024-07-06 00:52] VITALS: BP 122/74; PULSE 91; RESP 20; TEMP 36.8; O2SAT 96
[2024-07-06] MEDS ORDERED: IOHEXOL-350 100 ML BOTTLE ONE (07:08)
== END 2024-07-06 00:54 | disposition home or self-care (01) ==
LOC: ER 16:36
DX: I82.812 Embolism and thrombosis of superficial veins of left lower extremity (principal); E78.00 Pure hypercholesterolemia, unspecified; I10 Essential (primary) hypertension; Z79.899 Other long term (current) drug therapy; Z98.890 Other specified postprocedural states; Z88.8 Allergy status to other drugs, medicaments and biological substances
CPT/HCPCS: 99285; 93970; 71275; 71045; 80048; 83880; 85025; 85379; 84484; 36415; 93005; Q9967